=== PATIENT | male | born 1995 | race Caucasian/White ===

== ENCOUNTER 2018-02-21 19:45 | Inpatient (IN) | payer OTHER ==
[2018-02-21 21:19] VITALS: BMI 20.2
--- NOTE | 2018-02-21 22:18 | HP ---
CIWA Score Nausea/Vomitin-Mild Nausea/No Vomiting Muscle Tremors: 4-Moderate,w/Arms Extend Anxiety: 3 Agitation: 2 Paroxysmal Sweats: 1-Minimal Palms Moist Orientation: 1-Uncertain about Date Tacttile Disturbances: 0-None Auditory Disturbances: 0-None Visual Disturbances: 0-None Headache: 3-Moderate CIWA-Ar Total Score: 15 - Admission Criteria OASAS Guidelines: Admission for Medically Managed Detox: Requires at least one of the followin. CIWA greater than 12 2. Seizures within the past 24 hours 3. Delirium tremens within the past 24 hours 4. Hallucinations within the past 24 hours 5. Acute intervention needed for co occurring medical disorder 6. Acute intervention needed for co occurring psychiatric disorder 7. Severe withdrawal that cannot be handled at a lower level of care (continued vomiting, continued diarrhea, abnormal vital signs) requiring intravenous medication and/or fluids 8. Admission ROS [facility] Chief Complaint: Benodiazepine withdrawal symptoms Allergies/Adverse Reactions: Allergies Allergy/AdvReac Type Severity Reaction Status Date / Time shellfish derived Allergy Verified 02/21/18 21:19 History of Present Illness: 22 years old male with 5 years of benzodiazepine dependence is seeking admission to detox. Patient reports that this is his first admission to [facility] and this is his first detox. He has medical history of asthma, depression and anxiety. He denies suicide attempt and suicidal ideation at this time. He is on methadone 155mg at [facility] clinic. LDM is today, 02/21/2018. Exam Limitations: No Limitations - Ebola screening Have you traveled outside of the country in the last 21 days: No (N) Have you had contact with anyone from an Ebola affected area: No Have you been sick,other than usual withdrawal symptoms: No Do you have a fever: No - Review of Systems Constitutional: Chills, Malaise, Night Sweats, Changes in sleep EENT: reports: Sinus Pressure Respiratory: reports: No Symptoms reported Cardiac: reports: No Symptoms Reported GI: reports: Poor Appetite, Poor Fluid Intake, Abdominal cramping : reports: No Symptoms Reported Musculoskeletal: reports: Back Pain, Muscle Weakness Integumentary: reports: Dryness Neuro: reports: Headache, Tingling, Tremors Endocrine: reports: No Symptoms Reported Hematology: reports: No Symptoms Reported Psychiatric: reports: Anxious, Depressed Other Systems: Reviewed and Negative Patient History - Patient Medical History Hx Anemia: No Hx Asthma: Yes (Not on medication) Hx Chronic Obstructive Pulmonary Disease (COPD): No Hx Cancer: No Hx Cardiac Disorders: No Hx Congestive Heart Failure: No Hx Hypertension: No Hx Hypercholesterolemia: No Hx Pacemaker: No HX Cerebrovascular Accident: No Hx Seizures: No Hx Dementia: No Hx Diabetes: No Hx Gastrointestinal Disorders: No Hx Liver Disease: No Hx Genitourinary Disorders: No Hx Sexually Transmitted Disorders: No Hx Renal Disease (ESRD): No Hx Thyroid Disease: No Hx Human Immunodeficiency Virus (HIV): No (Negative 2018) Hx Hepatitis C: No Hx Depression: Yes (Not on medication) Hx Suicide Attempt: No (Denies suicide attempt or suicidal ideation at this tme ) Hx Bipolar Disorder: No Hx Schizophrenia: No - Patient Surgical History Past Surgical History: No - PPD History Previous Implant?: Yes Documented Results: Negative w/o proof Implanted On Prior [facility] Admission?: No PPD to be Administered?: Yes - Reproductive History Patient is a Female of Child Bearing Age (11 -55 yrs old): No (MALE) - Smoking Cessation Smoking history: Current every day smoker Have you smoked in the past 12 months: Yes Aproximately how many cigarettes per day: 4 Hx Chewing Tobacco Use: No Initiated information on smoking cessation: Yes 'Breaking Loose' booklet given: 02/21/18 - Substance & Tx. History Hx Alcohol Use: No Hx Substance Use: Yes Substance Use Type: Tranquilizers Hx Substance Use Treatment: No - Substances Abused Alprazolam (Xanax) Route: Oral Frequency: Daily Amount used: 2/2MG Age of first use: 21 Date of Last Use: 02/21/18 Benzodiazepine (Klonopin) Route: Oral Frequency: Daily Amount used: 2/2MG Age of first use: 21 Date of Last Use: 02/21/18 Family Disease History - Family Disease History Family History: Denies Admission Physical Exam BHS - Vital Signs Vital Signs: Vital Signs - 24 hr 02/21/18 21:06 Temperature 96.2 F L Pulse Rate 68 Respiratory 18 Rate Blood Pressure 105/54 L - Physical General Appearance: Yes: Moderate Distress HEENTM: Yes: EOMI, Normal ENT Inspection, Normocephalic, Normal Voice, ISIS Respiratory: Yes: Lungs Clear, Normal Breath Sounds, No Respiratory Distress Neck: Yes: Supple Breast: Yes: Breast Exam Deferred Cardiology: Yes: Regular Rhythm, Regular Rate Abdominal: Yes: Normal Bowel Sounds, Soft Genitourinary: Yes: Within Normal Limits Back: Yes: Normal Inspection Musculoskeletal: Yes: Back pain, Muscle Pain, Muscle weakness Extremities: Yes: Tremors Neurological: Yes: general magistrate II-XII NML intact, Alert Integumentary: Yes: Warm Lymphatic: Yes: Within Normal Limits - Diagnostic (1) Asthma Current Visit: Yes Status: Chronic Qualifiers: Asthma severity: mild Asthma persistence: intermittent (2) Depression Current Visit: Yes Status: Chronic Qualifiers: Depression Type: unspecified Qualified Code(s): F32.9 - Major depressive disorder, single episode, unspecified (3) Anxiety Current Visit: Yes Status: Chronic (4) Sedative, hypnotic or anxiolytic dependence with withdrawal, uncomplicated Current Visit: Yes Status: Chronic (5) Methadone maintenance therapy patient Current Visit: Yes Status: Chronic Cleared for Admission S - Detox or Rehab [facility] Level of Care: Medically Managed Detox Regimen/Protocol: Valium S Breath Alcohol Content Breath Alcohol Content: 0 Urine Drug Screen - Results Drug Screen Negative: No Urine Drug Screen Results: THC-Marijuana, BAR-Barbiturates, BZO-Benzodiazepines , MTD-Methadone
[2018-02-21] MEDS ORDERED: LOPERAMIDE HCL 2 MG CAPSULE PO PRN (22:45)
[2018-02-21] MEDS ORDERED: MAG HYDROX/AL HYDROX/SIMETH 30 ML UNIT-DOSE CUP PO PRN (22:45)
[2018-02-21] MEDS ORDERED: IBUPROFEN 400 MG TABLET (FP) PO PRN (22:45)
[2018-02-21] MEDS ORDERED: MAGNESIUM CITRATE 300 ML BOTTLE PO PRN (22:45)
[2018-02-21] MEDS ORDERED: NICOTINE POLACRILEX 2 MG GUM BC PRN (22:45)
[2018-02-21] MEDS ORDERED: guaiFENesin/D-METHORPHAN HB 10 ML UNIT-DOSE CUPS PO PRN (22:45)
[2018-02-21] MEDS ORDERED: diazePAM 5 MG TABLET PO ONE (22:45)
[2018-02-21] MEDS ORDERED: P-EPHED 60MG/TRIPROLIDI 2.5MG TABLET PO PRN (22:45)
[2018-02-21] MEDS ORDERED: ACETAMINOPHEN 325 MG TABLET (FP) PO PRN (22:45)
[2018-02-21] MEDS ORDERED: MENTHOL/PHENOL 1 EACH UD MM PRN (22:45)
[2018-02-21] MEDS: MELATONIN 5 MG TABLETS PO PRN (23:31)
[2018-02-21] MEDS: diazePAM 5 MG TABLET PO SCH (23:35)
[2018-02-22] MEDS: diazePAM 5 MG TABLET PO SCH ×3 (05:29→22:32)
[2018-02-22] MEDS ORDERED: METHADONE HCL 10 MG TABLET PO SCH (07:30)
[2018-02-22] MEDS ORDERED: METHADONE HCL 10 MG TABLET ONE (09:25)
[2018-02-22] MEDS ORDERED: METHADONE HCL 5 MG TABLET ONE (09:25)
[2018-02-22] MEDS ORDERED: METHADONE HCL 40 MG DISPERSABLE TABLET ONE (09:25)
[2018-02-22 10:05] LABS: HEMATOCRIT 38.2 % (35.4-49); HEMOGLOBIN 13.1 GM/dL (11.7-16.9); MCH 28.4 pg (25.7-33.7); MCHC 34.5 g/dl (32.0-35.9); MEAN CELL VOLUME 82.4 fl (80-96); MEAN PLT VOLUME 9.7 fl (7.5-11.1); PLATELET COUNT 156 K/MM3 (134-434); RBC 4.63 M/mm3 (4.00-5.60); RDW 14.3 % (11.9-15.9); WHITE BLOOD COUNT 7.1 K/mm3 (4.0-10.0)
[2018-02-22] MEDS: METHADONE 120 MG, METHADONE 30 MG, METHADONE 5 MG PO SCH (10:06)
[2018-02-22] MEDS: NICOTINE 14 MG/24 HOURS TOPICAL PATCH TD SCH (10:06)
[2018-02-22] MEDS: PRENATAL VITAMINS W/ FOLIC ACID TABLET (FP) PO SCH (10:06)
[2018-02-22] MEDS: MAGNESIUM HYDROX 2400MG/30ML ORAL SUSPENSION 30 ML CUP PO PRN (10:07)
[2018-02-22] MEDS: diazePAM 5 MG TABLET PO PRN ×2 (10:09→17:29)
[2018-02-22 10:25] LABS: ALK PHOS 73 U/L (45-117); ANION GAP 8 MMOL/L (8-16); BILIRUBIN,TOTAL 0.3 mg/dL (0.2-1); BLOOD UREA NITROGEN 13 mg/dL (7-18); CALCIUM 8.7 mg/dL (8.5-10.1); CHLORIDE 106 mmol/L (98-107); CO2 29 mmol/L (21-32); GLUCOSE,RANDOM 77 mg/dL (74-106); POTASSIUM 4.3 mmol/L (3.5-5.1); SGOT/AST 26 U/L (15-37); SGPT/ALT 29 U/L (13-61); SODIUM 142 mmol/L (136-145); TOT PROT 7.1 g/dl (6.4-8.2)
--- NOTE | 2018-02-22 12:39 | PN ---
S CIWA - CIWA Score Nausea/Vomitin-No Nausea/No Vomiting Muscle Tremors: None Anxiety: 4-Mod. Anxious/Guarded Agitation: 4-Moderately Restless Paroxysmal Sweats: 2 Orientation: 0-Oriented Tacttile Disturbances: 0-None Auditory Disturbances: 0-None Visual Disturbances: 0-None Headache: 2-Mild CIWA-Ar Total Score: 12 BHS Progress Note (SOAP) Subjective: PATIENT ANXIETY, RESTLESSNESS, HEADACHE AND CONSTIPATION. Objective: 02/22/18 12:37 Vital Signs Temperature 97.1 F L 02/22/18 06:15 Pulse Rate 55 L 02/22/18 06:15 Respiratory Rate 16 02/22/18 06:15 Blood Pressure 102/60 02/22/18 06:15 O2 Sat by Pulse Oximetry (%) Laboratory Tests 02/22/18 02/22/18 02/22/18 07:00 07:00 07:00 WBC 7.1 RBC 4.63 Hgb 13.1 Hct 38.2 MCV 82.4 MCH 28.4 MCHC 34.5 RDW 14.3 Plt Count 156 MPV 9.7 Sodium 142 Potassium 4.3 Chloride 106 Carbon Dioxide 29 Anion Gap 8 BUN 13 Creatinine 1.0 Creat Clearance w eGFR > 60 Random Glucose 77 Calcium 8.7 Total Bilirubin 0.3 AST 26 ALT 29 Alkaline Phosphatase 73 Total Protein 7.1 Albumin 4.0 RPR Titer Nonreactive PE; SKIN WARM AND DRY ALERT AND ORIENTED X 3 EXT + FULL ROM, NO EDEMA ANXIOUS AND RESTLESS AMB AD JOÃO Assessment: 02/22/18 12:38 WITHDRAWAL SX CONSTIPATION Plan: CONTINUE DETOX ENCOURAGE ORAL FLUIDS CONTINUE MOM PRN MONITOR CLINICALLY
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
[2018-02-22] MEDS: MELATONIN 5 MG TABLETS PO PRN (22:32)
[2018-02-22] MEDS: THIAMINE HCL 100 MG TABLET (FP) PO SCH (22:32)
[2018-02-23] MEDS ORDERED: METHADONE HCL 10 MG TABLET ONE (04:12)
[2018-02-23] MEDS ORDERED: METHADONE HCL 40 MG DISPERSABLE TABLET ONE (04:12)
[2018-02-23] MEDS ORDERED: METHADONE HCL 5 MG TABLET ONE (04:13)
[2018-02-23] MEDS: diazePAM 5 MG TABLET PO PRN ×2 (05:41→17:54)
[2018-02-23] MEDS: METHADONE 120 MG, METHADONE 30 MG, METHADONE 5 MG PO SCH (05:41)
[2018-02-23] MEDS: PRENATAL VITAMINS W/ FOLIC ACID TABLET (FP) PO SCH (09:44)
[2018-02-23] MEDS: NICOTINE 14 MG/24 HOURS TOPICAL PATCH TD SCH (09:44)
[2018-02-23] MEDS: diazePAM 5 MG TABLET PO SCH ×2 (09:44→22:07)
--- NOTE | 2018-02-23 10:53 | PN ---
S CIWA - CIWA Score Nausea/Vomitin-Mild Nausea/No Vomiting Muscle Tremors: 2 Anxiety: 4-Mod. Anxious/Guarded Agitation: 5 Paroxysmal Sweats: 1-Minimal Palms Moist Orientation: 0-Oriented Tacttile Disturbances: 0-None Auditory Disturbances: 0-None Visual Disturbances: 0-None Headache: 0-None Present CIWA-Ar Total Score: 13 BHS Progress Note (SOAP) Subjective: Constipation Anxious Feeling depressed Objective: 02/23/18 10:52 A & O x 3 Lips dry Anxious Very restless Vital Signs Temperature 97.0 F L 02/23/18 09:42 Pulse Rate 56 L 02/23/18 09:42 Respiratory Rate 16 02/23/18 09:42 Blood Pressure 102/61 02/23/18 09:42 O2 Sat by Pulse Oximetry (%) Assessment: 02/23/18 10:53 Withdrawal sx Anxiety Denies SI/HI, just feeling sad Plan: Continue detox Encouraged to increase hydration For psych consult Continue Valium PRN for Anxiety/restlessness Monitor constipation in view of Citroma given p.M yesterday Continue clinical monitoring
[2018-02-23 12:47] LABS: URINE APPEARANCE SLCLOUDY; URINE BILIRUBIN NEGATIVE (<2.0 mg/dL); URINE GLUCOSE (UA) NEGATIVE (NEGATIVE); URINE KETONE TRACE (NEGATIVE); URINE LEUK ESTERASE TRACE (NEGATIVE); URINE NITRITE NEGATIVE (NEGATIVE); URINE PROTEIN 1+ (NEGATIVE)
[2018-02-23 13:13] LABS: URINE COLOR DK YELLOW
[2018-02-23 14:04] LABS: URINE HYALINE CAST 3 /lpf; URINE MUCUS MANY
[2018-02-23] MEDS: MAGNESIUM HYDROX 2400MG/30ML ORAL SUSPENSION 30 ML CUP PO PRN (17:54)
[2018-02-23] MEDS: MELATONIN 5 MG TABLETS PO PRN (22:07)
[2018-02-23] MEDS: THIAMINE HCL 100 MG TABLET (FP) PO SCH (22:07)
[2018-02-24] MEDS ORDERED: METHADONE HCL 10 MG TABLET ONE (03:07)
[2018-02-24] MEDS ORDERED: METHADONE HCL 40 MG DISPERSABLE TABLET ONE (03:07)
[2018-02-24] MEDS ORDERED: METHADONE HCL 5 MG TABLET ONE (03:08)
[2018-02-24] MEDS: METHADONE 120 MG, METHADONE 30 MG, METHADONE 5 MG PO SCH (06:04)
[2018-02-24] MEDS: diazePAM 5 MG TABLET PO PRN ×3 (06:05→17:51)
[2018-02-24] MEDS: diazePAM 5 MG TABLET PO SCH ×2 (10:15→22:17)
[2018-02-24] MEDS: PRENATAL VITAMINS W/ FOLIC ACID TABLET (FP) PO SCH (10:15)
[2018-02-24] MEDS: NICOTINE 14 MG/24 HOURS TOPICAL PATCH TD SCH (10:15)
--- NOTE | 2018-02-24 16:05 | PN ---
BHS Progress Note (SOAP) Subjective: Sweating, anxious, restless Objective: 02/24/18 16:02 Last Vital Signs Temp Pulse Resp BP Pulse Ox 97.4 F L 63 18 115/70 02/24/18 13:45 02/24/18 13:45 02/24/18 13:45 02/24/18 13:45 Laboratory Tests 02/22/18 02/22/18 02/22/18 07:00 07:00 07:00 WBC 7.1 RBC 4.63 Hgb 13.1 Hct 38.2 MCV 82.4 MCH 28.4 MCHC 34.5 RDW 14.3 Plt Count 156 MPV 9.7 Sodium 142 Potassium 4.3 Chloride 106 Carbon Dioxide 29 Anion Gap 8 BUN 13 Creatinine 1.0 Creat Clearance w eGFR > 60 Random Glucose 77 Calcium 8.7 Total Bilirubin 0.3 AST 26 ALT 29 Alkaline Phosphatase 73 Total Protein 7.1 Albumin 4.0 Urine Color Urine Appearance Urine pH Ur Specific [place] Urine Protein Urine Glucose (UA) Urine Ketones Urine Blood Urine Nitrite Urine Bilirubin Urine Urobilinogen Ur Leukocyte Esterase Urine WBC (Auto) Urine RBC (Auto) Hyaline Casts Urine Mucus RPR Titer Nonreactive 02/23/18 09:38 WBC RBC Hgb Hct MCV MCH MCHC RDW Plt Count MPV Sodium Potassium Chloride Carbon Dioxide Anion Gap BUN Creatinine Creat Clearance w eGFR Random Glucose Calcium Total Bilirubin AST ALT Alkaline Phosphatase Total Protein Albumin Urine Color Dk yellow Urine Appearance Slcloudy Urine pH 5.0 Ur Specific [place] 1.029 Urine Protein 1+ H Urine Glucose (UA) Negative Urine Ketones Trace H Urine Blood Negative Urine Nitrite Negative Urine Bilirubin Negative Urine Urobilinogen 2.0 Ur Leukocyte Esterase Trace Urine WBC (Auto) 1 Urine RBC (Auto) None Hyaline Casts 3 Urine Mucus Many RPR Titer Labs reviewed: abnormal UA Assessment: 02/24/18 16:03 Withdrawal symptoms Noted with abnormal UA Plan: Continue detox Abnormal UA: encouraged PO water intake, repeat UA
[2018-02-24 21:10] LABS: URINE APPEARANCE CLEAR; URINE BILIRUBIN NEGATIVE (<2.0 mg/dL); URINE COLOR STRAW; URINE GLUCOSE (UA) NEGATIVE (NEGATIVE); URINE KETONE NEGATIVE (NEGATIVE); URINE LEUK ESTERASE TRACE (NEGATIVE); URINE NITRITE NEGATIVE (NEGATIVE); URINE PROTEIN NEGATIVE (NEGATIVE); URINE UROBILINOGEN NEGATIVE mg/dL (0.2-1.0)
[2018-02-24] MEDS: THIAMINE HCL 100 MG TABLET (FP) PO SCH (22:17)
[2018-02-24] MEDS: MELATONIN 5 MG TABLETS PO PRN (22:18)
[2018-02-25] MEDS ORDERED: METHADONE HCL 10 MG TABLET ONE (03:33)
[2018-02-25] MEDS ORDERED: METHADONE HCL 5 MG TABLET ONE (03:34)
[2018-02-25] MEDS ORDERED: METHADONE HCL 40 MG DISPERSABLE TABLET ONE (03:34)
[2018-02-25] MEDS: METHADONE 120 MG, METHADONE 30 MG, METHADONE 5 MG PO SCH (06:04)
[2018-02-25 09:05] VITALS: BP 133/75; PULSE 70; TEMP 98.6
--- NOTE | 2018-02-25 09:08 | DS ---
[facility] Detox Discharge Summary Admission Date: 02/21/18 Discharge Date: 02/25/18 - History Present History: Sedative Dependence Additional Comments: 22 years old male admitted on 02/21/18 for benzo withdrawal sx completed benzo detox regimen tolerated well denies benzo withdrawal sx alert oriented x 3 no acute distress aftercare methadone maintenance program Dr. Rivera - Physical Exam Results Vital Signs: Vital Signs Temperature 98.6 F 02/25/18 09:05 Pulse Rate 70 02/25/18 09:05 Respiratory Rate 18 02/25/18 09:05 Blood Pressure 133/75 02/25/18 09:05 O2 Sat by Pulse Oximetry (%) Pertinent Admission Physical Exam Findings: benzo withdrawal sx Vital Signs Temperature 98.6 F 02/25/18 09:05 Pulse Rate 70 02/25/18 09:05 Respiratory Rate 18 02/25/18 09:05 Blood Pressure 133/75 02/25/18 09:05 O2 Sat by Pulse Oximetry (%) Laboratory Last Values WBC 7.1 K/mm3 (4.0-10.0) 02/22/18 07:00 RBC 4.63 M/mm3 (4.00-5.60) 02/22/18 07:00 Hgb 13.1 GM/dL (11.7-16.9) 02/22/18 07:00 Hct 38.2 % (35.4-49) 02/22/18 07:00 MCV 82.4 fl (80-96) 02/22/18 07:00 MCH 28.4 pg (25.7-33.7) 02/22/18 07:00 MCHC 34.5 g/dl (32.0-35.9) 02/22/18 07:00 RDW 14.3 % (11.9-15.9) 02/22/18 07:00 Plt Count 156 K/MM3 (134-434) 02/22/18 07:00 MPV 9.7 fl (7.5-11.1) 02/22/18 07:00 Sodium 142 mmol/L (136-145) 02/22/18 07:00 Potassium 4.3 mmol/L (3.5-5.1) 02/22/18 07:00 Chloride 106 mmol/L (98-107) 02/22/18 07:00 Carbon Dioxide 29 mmol/L (21-32) 02/22/18 07:00 Anion Gap 8 MMOL/L (8-16) 02/22/18 07:00 BUN 13 mg/dL (7-18) 02/22/18 07:00 Creatinine 1.0 mg/dL (0.55-1.3) 02/22/18 07:00 Creat Clearance w eGFR > 60 (>60) 02/22/18 07:00 Random Glucose 77 mg/dL (74-106) 02/22/18 07:00 Calcium 8.7 mg/dL (8.5-10.1) 02/22/18 07:00 Total Bilirubin 0.3 mg/dL (0.2-1) 02/22/18 07:00 AST 26 U/L (15-37) 02/22/18 07:00 ALT 29 U/L (13-61) 02/22/18 07:00 Alkaline Phosphatase 73 U/L (45-117) 02/22/18 07:00 Total Protein 7.1 g/dl (6.4-8.2) 02/22/18 07:00 Albumin 4.0 g/dl (3.4-5.0) 02/22/18 07:00 Urine Color Straw 02/24/18 19:00 Urine Appearance Clear 02/24/18 19:00 Urine pH 7.0 (5.0-8.0) D 02/24/18 19:00 Ur Specific [place] 1.012 (1.010-1.035) 02/24/18 19:00 Urine Protein Negative (NEGATIVE) 02/24/18 19:00 Urine Glucose (UA) Negative (NEGATIVE) 02/24/18 19:00 Urine Ketones Negative (NEGATIVE) 02/24/18 19:00 Urine Blood Negative (NEGATIVE) 02/24/18 19:00 Urine Nitrite Negative (NEGATIVE) 02/24/18 19:00 Urine Bilirubin Negative (<2.0 mg/dL) 02/24/18 19:00 Urine Urobilinogen Negative mg/dL (0.2-1.0) 02/24/18 19:00 Ur Leukocyte Esterase Trace (NEGATIVE) 02/24/18 19:00 Urine WBC (Auto) 1 /hpf (3-5) 02/24/18 19:00 Urine RBC (Auto) None /hpf (0-3) 02/24/18 19:00 Hyaline Casts 3 /lpf 02/23/18 09:38 Urine Mucus Many 02/23/18 09:38 RPR Titer Nonreactive (NONREACTIVE) 02/22/18 07:00 lab noted - Treatment Hospital Course: Detox Protocol Followed, Detoxed Safely, Responded well, Discharged Condition Good, Rehab Referral Accepted Patient has Accepted a Rehab Referral to: [facility] - Medication Discharge Medications: Ambulatory Orders NK [No Known Home Medication] 02/21/18 - Diagnosis (1) Sedative, hypnotic or anxiolytic dependence with withdrawal, uncomplicated Status: Acute (2) Substance induced mood disorder Status: Suspected (3) Asthma Status: Chronic Qualifiers: Asthma severity: mild Asthma persistence: intermittent Asthma complication type: with status asthmaticus Qualified Code(s): J45.22 - Mild intermittent asthma with status asthmaticus (4) Methadone maintenance therapy patient Status: Chronic (5) Nicotine dependence Status: Chronic Qualifiers: Nicotine product type: cigarettes Substance use status: in withdrawal Qualified Code(s): F17.213 - Nicotine dependence, cigarettes, with withdrawal - AMA Did Patient Leave Against Medical Advice: No
[2018-02-25] MEDS: PRENATAL VITAMINS W/ FOLIC ACID TABLET (FP) PO SCH (09:29)
[2018-02-25] MEDS ORDERED: diazePAM 5 MG TABLET PO SCH (10:00)
== END 2018-02-25 09:59 | disposition home or self-care (01) | DRG 773 ==
LOC: YASAS 19:45 → Y3N 21:40
PROVIDERS: ADMIT Neuromusculoskeletal Medicine & OMM; ATTEND Neuromusculoskeletal Medicine & OMM
PROC: HZ2ZZZZ Detoxification Services for Substance Abuse Treatment (ICD-10-PCS; principal; 2018-02-21)
DX: F13.230 Sedative, hypnotic or anxiolytic dependence with withdrawal, uncomplicated (principal); F11.20 Opioid dependence, uncomplicated; F17.213 Nicotine dependence, cigarettes, with withdrawal; F19.24 Other psychoactive substance dependence with psychoactive substance-induced mood disorder; F41.9 Anxiety disorder, unspecified; F32.9 Major depressive disorder, single episode, unspecified; J45.22 Mild intermittent asthma with status asthmaticus; R82.90 Unspecified abnormal findings in urine; K59.00 Constipation, unspecified; Z91.19 Patient's noncompliance with other medical treatment and regimen; Z91.013 Allergy to seafood
CPT/HCPCS: 36415; 80053; 81003; 81015; 85027; 86593

== ENCOUNTER 2018-12-16 16:22 | Inpatient (IN) | payer OTHER ==
--- NOTE | 2018-12-16 21:51 | HP ---
CIWA Score Nausea/Vomitin-No Nausea/No Vomiting Muscle Tremors: None Anxiety: 4-Mod. Anxious/Guarded Agitation: 4-Moderately Restless Paroxysmal Sweats: 3 Orientation: 1-Uncertain about Date Tacttile Disturbances: 0-None Auditory Disturbances: 1-Very Mild Visual Disturbances: 1-Very Mild Sensitivity Headache: 2-Mild CIWA-Ar Total Score: 16 - Admission Criteria OAS Guidelines: Admission for Medically Managed Detox: Requires at least one of the followin. CIWA greater than 12 2. Seizures within the past 24 hours 3. Delirium tremens within the past 24 hours 4. Hallucinations within the past 24 hours 5. Acute intervention needed for co occurring medical disorder 6. Acute intervention needed for co occurring psychiatric disorder 7. Severe withdrawal that cannot be handled at a lower level of care (continued vomiting, continued diarrhea, abnormal vital signs) requiring intravenous medication and/or fluids 8. Patient presents the following: CIWA greater than 12, Acute intervention needed for co-occurring med or psych disorder Admission Criteria Met: Admission criteria met Admission ROS S - [facility] Chief Complaint: C/O WITHDRAWAL SX'S Allergies/Adverse Reactions: Allergies Allergy/AdvReac Type Severity Reaction Status Date / Time shellfish derived Allergy Verified 12/16/18 19:21 History of Present Illness: 23 Y.O. MALE WITH BENZO DEPENDENCE ON MMTP HERE FOR DETOX. CLIENT IS SELF REFERRED. LAST HERE 01/2018. PRESENTS WITH C/O WORSENING WITHDRAWAL SX'S, REPORTS KLONOPINS AND/OR XANAX ON A DAILY BASIS. LAST USED EARLIER TODAY. + CIWA , DENIES HX/O SEIZURES, BLACKOUTS. CLIENT REPORTS A CLEAN TIME OF 6 MONTHS RELAPSING 3 MONTHS AGO. LIVES WITH PARENTS, UNEMPLOYED- FAMILY SUPPORT, DENIES LEGALS. HE ALSO SUFFERS FROM DEPRESSION ON MED MGMT REPORTS COMPLIANCE WITH MED MGMT FOLLOWS PSYCH IN THE [facility] BY [facility]. DENIES SI/HI. HE IS [facility] OM MMTP AT [facility] WITH A REPORTED DOSE OF 155MG. LDM TODAY PENDING VERIFICATION Exam Limitations: No Limitations - Ebola screening Have you traveled outside of the country in the last 21 days: No Have you had contact with anyone from an Ebola affected area: No Have you been sick,other than usual withdrawal symptoms: No Do you have a fever: No - Review of Systems Constitutional: Loss of Appetite, Malaise (LOWER BACK), Night Sweats, Changes in sleep, Unintentional Wgt. Loss EENT: reports: Other (GLASSES) Respiratory: reports: No Symptoms reported Cardiac: reports: No Symptoms Reported GI: reports: Poor Appetite, Poor Fluid Intake, Abdominal cramping : reports: No Symptoms Reported Musculoskeletal: reports: Back Pain (CHRONIC) Integumentary: reports: Flushing, Sweating Neuro: reports: No Symptoms reported Endocrine: reports: No Symptoms Reported Hematology: reports: No Symptoms Reported Psychiatric: reports: Agitated (IRRITABLE), Anxious, Depressed Other Systems: Reviewed and Negative Patient History - Patient Medical History Hx Anemia: No Hx Asthma: Yes (Not on medication) Hx Chronic Obstructive Pulmonary Disease (COPD): No Hx Cancer: No Hx Cardiac Disorders: No Hx Congestive Heart Failure: No Hx Hypertension: No Hx Hypercholesterolemia: No Hx Pacemaker: No HX Cerebrovascular Accident: No Hx Seizures: No Hx Dementia: No Hx Diabetes: No Hx Gastrointestinal Disorders: No Hx Liver Disease: No Hx Genitourinary Disorders: No Hx Sexually Transmitted Disorders: No Hx Renal Disease (ESRD): No Hx Thyroid Disease: No Hx Human Immunodeficiency Virus (HIV): No (Negative 2017) Hx Hepatitis C: No Hx Depression: Yes (Not on medication) Hx Suicide Attempt: No Hx Bipolar Disorder: No Hx Schizophrenia: No Other Medical History: DENIES - Patient Surgical History Past Surgical History: No - PPD History Previous Implant?: Yes Documented Results: Negative w/proof Implanted On Prior [facility] Admission?: Yes Date: 02/23/18 PPD to be Administered?: No - Smoking Cessation Smoking history: Current every day smoker Have you smoked in the past 12 months: Yes Aproximately how many cigarettes per day: 4 Cigars Per Day: 0 Hx Chewing Tobacco Use: No Initiated information on smoking cessation: Yes 'Breaking Loose' booklet given: 12/16/18 - Substance & Tx. History Hx Alcohol Use: No Hx Substance Use: Yes Substance Use Type: Cocaine, Prescribed (METHADONE), Tranquilizers (KLONOPINS AND XANAX) Hx Substance Use Treatment: Yes ([facility]) - Substances abused Benzodiazepine (Klonopin) Substance route: Oral Frequency: Daily Amount used: 3-5mg/day Age of first use: 17 Date of last use: 12/16/18 Alprazolam (Xanax) Substance route: Oral Frequency: 3-6 times per week Amount used: 4mg Age of first use: 17 Date of last use: 12/16/18 Cocaine Substance route: Injection Frequency: Daily Amount used: $60/day Age of first use: 18 Date of last use: 12/16/18 Family Disease History - Family Disease History Family Disease History: Other: Father (RECOVERING HEROIN ADDICT), Mother ( DEPRESSION, ANXIETY, RECOVERING ADDICTS COCAINE) Admission Physical Exam [facility] - Vital Signs Vital Signs: Vital Signs - 24 hr 12/16/18 19:18 Temperature 98.0 F Pulse Rate 86 Respiratory 16 Rate Blood Pressure 112/82 - Physical General Appearance: Yes: Moderate Distress, Tremorous (FELT), Irritable, Anxious HEENTM: Yes: EOMI, Normocephalic, Normal Voice, ISIS, Pharynx Normal Respiratory: Yes: Chest Non-Tender, Lungs Clear, Normal Breath Sounds, No Respiratory Distress, No Accessory Muscle Use Neck: Yes: No masses,lesions,Nodules, Supple, Trachea in good position Breast: Yes: Breast Exam Deferred Cardiology: Yes: Regular Rhythm, Regular Rate, S1, S2 Abdominal: Yes: Normal Bowel Sounds, Non Tender, Soft Genitourinary: Yes: Within Normal Limits Back: Yes: Normal Inspection Musculoskeletal: Yes: full range of Motion, Gait Steady Extremities: Yes: Normal Capillary Refill, Normal Range of Motion, Non-Tender, Tremors (FELT) Neurological: Yes: Alert, Motor Strength 5/5 Integumentary: Yes: Cold, Clammy Lymphatic: Yes: Within Normal Limits - Diagnostic (1) Opioid dependence on agonist therapy Current Visit: Yes Status: Chronic (2) Sedative, hypnotic or anxiolytic dependence with withdrawal, uncomplicated Current Visit: Yes Status: Acute (3) Asthma Current Visit: Yes Status: Chronic Qualifiers: Asthma severity: mild Asthma persistence: intermittent Asthma complication type: with status asthmaticus Qualified Code(s): J45.22 - Mild intermittent asthma with status asthmaticus (4) Depression Current Visit: Yes Status: Chronic Qualifiers: Depression Type: unspecified Qualified Code(s): F32.9 - Major depressive disorder, single episode, unspecified (5) Nicotine dependence Current Visit: Yes Status: Chronic Qualifiers: Nicotine product type: cigarettes Substance use status: in withdrawal Qualified Code(s): F17.213 - Nicotine dependence, cigarettes, with withdrawal (6) Substance induced mood disorder Current Visit: Yes Status: Suspected Cleared for Admission S - Detox or Rehab [facility] Level of Care: Medically Managed Detox Regimen/Protocol: Valium Claeared for Rehab Admission: No Breathalyzer - Breathalyzer Breathalyzer: 0 Urine Drug Screen - Test Device Lot number: [id number] Expiration date: 08/30/20 - Control Is test valid?: Yes - Results Drug screen NEGATIVE: No Urine drug screen results: THC-Marijuana, LEONEL-Cocaine, MTD-Methadone, BZO- Benzodiazepines Inpatient Rehab Admission - Rehab Decision to Admit Inpatient rehab admission?: No
[2018-12-16] MEDS ORDERED: BISMUTH SUBSALICYLATE 524 MG/30 ML UD PO PRN (21:57)
[2018-12-16] MEDS ORDERED: MAG HYDROX/AL HYDROX/SIMETH 30 ML UNIT-DOSE CUP PO PRN (21:57)
[2018-12-16] MEDS ORDERED: MAGNESIUM HYDROX 2400MG/30ML ORAL SUSPENSION 30 ML CUP PO PRN (21:57)
[2018-12-16] MEDS ORDERED: MENTHOL/PHENOL 1 EACH UD MM PRN (21:57)
[2018-12-16] MEDS ORDERED: ACETAMINOPHEN 325 MG TABLET (FP) PO PRN ×2 (21:57)
[2018-12-16] MEDS ORDERED: MAGNESIUM CITRATE 300 ML BOTTLE PO PRN (21:57)
[2018-12-16] MEDS ORDERED: ONDANSETRON *ODT* 4 MG TABLET SL PRN (21:57)
[2018-12-16] MEDS ORDERED: DICYCLOMINE HCL 10 MG CAPSULE PO PRN (21:57)
[2018-12-16] MEDS ORDERED: IBUPROFEN 400 MG TABLET (FP) PO PRN (21:57)
[2018-12-16] MEDS ORDERED: NICOTINE POLACRILEX 2 MG GUM BUC PRN (21:57)
[2018-12-16] MEDS: THIAMINE HCL 100 MG TABLET (FP) PO SCH (23:35)
[2018-12-16] MEDS: MELATONIN 5 MG TABLETS PO PRN (23:35)
[2018-12-16] MEDS: diazePAM 5 MG TABLET PO SCH (23:35)
[2018-12-17] MEDS: diazePAM 5 MG TABLET PO SCH ×3 (06:31→21:12)
[2018-12-17] MEDS ORDERED: METHADONE 120 MG, METHADONE 30 MG, METHADONE 5 MG PO ONE (09:00)
[2018-12-17] MEDS ORDERED: METHADONE HCL 10 MG TABLET ONE (09:55)
[2018-12-17] MEDS ORDERED: METHADONE HCL 5 MG TABLET ONE (09:56)
[2018-12-17] MEDS ORDERED: METHADONE HCL 40 MG DISPERSABLE TABLET ONE (09:56)
[2018-12-17] MEDS ORDERED: METHADONE HCL 10 MG TABLET PO ONE (10:00)
--- NOTE | 2018-12-17 10:03 | PN ---
S CIWA - CIWA Score Nausea/Vomitin-Mild Nausea/No Vomiting Muscle Tremors: 3 Anxiety: 4-Mod. Anxious/Guarded Agitation: 3 Paroxysmal Sweats: 2 Orientation: 0-Oriented Tacttile Disturbances: 1-Very Mild Itch/Numbness Auditory Disturbances: 0-None Visual Disturbances: 0-None Headache: 0-None Present CIWA-Ar Total Score: 14 [facility] Progress Note (SOAP) Subjective: 23 years old male admitted on 12/16/18 for benzo withdrawal sx management doing well with valium detox regimen patient received valium 5 mg po bid 30 days refilled on 11/21/18 patient hesitate to discuss aftercare with staff at this time Objective: 12/17/18 10:05 Vital Signs Temperature 97.3 F L 12/17/18 09:16 Pulse Rate 64 12/17/18 09:16 Respiratory Rate 18 12/17/18 09:16 Blood Pressure 104/61 12/17/18 09:16 O2 Sat by Pulse Oximetry (%) 12/17/18 10:05 lab pending Assessment: 12/17/18 10:05 benzo withdrawal sx Plan: continue valium detox regimen
[2018-12-17 10:08] LABS: HEMATOCRIT 36.7 % (35.4-49); HEMOGLOBIN 12.2 GM/dL (11.7-16.9); MCHC 33.3 g/dl (32.0-35.9); MEAN CELL VOLUME 83.9 fl (80-96); MEAN PLT VOLUME 8.7 fl (7.5-11.1); PLATELET COUNT 157 K/MM3 (134-434); RBC 4.37 M/mm3 (4.00-5.60); RDW 13.6 % (11.9-15.9); WHITE BLOOD COUNT 4.5 K/mm3 (4.0-10.0)
--- NOTE | 2018-12-17 10:09 | EKG ---
Test Reason : Blood Pressure : / mmHG Vent. Rate : 055 BPM Atrial Rate : 055 BPM P-R Int : 134 ms QRS Dur : 094 ms QT Int : 476 ms P-R-T Axes : 066 090 055 degrees QTc Int : 455 ms SINUS BRADYCARDIA RIGHTWARD AXIS BORDERLINE ECG NO PREVIOUS ECGS AVAILABLE Confirmed by MD Rachelle, Sridhar ([id number]) on 12/17/2018 10:09:17 AM Referred By: Confirmed By:Sridhar Bush MD
[2018-12-17 10:22] LABS: ALBUMIN 3.7 g/dl (3.4-5.0); BILIRUBIN,TOTAL 0.4 mg/dL (0.2-1); BLOOD UREA NITROGEN 14.1 mg/dL (7-18); CALCIUM 8.6 mg/dL (8.5-10.1); POTASSIUM 4.1 mmol/L (3.5-5.1); TOT PROT 6.4 g/dl (6.4-8.2)
[2018-12-17] MEDS: PRENATAL VITAMINS W/ FOLIC ACID TABLET (FP) PO SCH (10:28)
[2018-12-17] MEDS: NICOTINE 14 MG/24 HOURS TOPICAL PATCH TD SCH (10:28)
[2018-12-17] MEDS: hydrOXYzine PAMOATE 25 MG CAPSULE (FP) PO PRN (18:57)
[2018-12-17] MEDS: THIAMINE HCL 100 MG TABLET (FP) PO SCH (21:11)
[2018-12-17] MEDS: MELATONIN 5 MG TABLETS PO PRN (21:12)
[2018-12-18] MEDS ORDERED: METHADONE HCL 10 MG TABLET ONE (04:12)
[2018-12-18] MEDS ORDERED: METHADONE HCL 40 MG DISPERSABLE TABLET ONE (04:12)
[2018-12-18] MEDS ORDERED: METHADONE HCL 5 MG TABLET ONE (04:13)
[2018-12-18] MEDS ORDERED: METHADONE HCL 10 MG TABLET PO SCH (06:00)
[2018-12-18] MEDS: METHADONE 120 MG, METHADONE 30 MG, METHADONE 5 MG PO SCH (06:08)
[2018-12-18] MEDS: diazePAM 5 MG TABLET PO SCH ×2 (06:09→17:24)
[2018-12-18] MEDS: NICOTINE 14 MG/24 HOURS TOPICAL PATCH TD SCH (10:24)
[2018-12-18] MEDS: PRENATAL VITAMINS W/ FOLIC ACID TABLET (FP) PO SCH (10:24)
[2018-12-18] MEDS: diazePAM 5 MG TABLET PO PRN ×3 (10:24→20:44)
[2018-12-18 11:36] LABS: URINE APPEARANCE CLEAR; URINE BILIRUBIN NEGATIVE (NEGATIVE); URINE COLOR YELLOW; URINE GLUCOSE (UA) NEGATIVE (NEGATIVE); URINE KETONE NEGATIVE (NEGATIVE); URINE LEUK ESTERASE NEGATIVE (NEGATIVE); URINE NITRITE NEGATIVE (NEGATIVE); URINE PROTEIN NEGATIVE (NEGATIVE); URINE UROBILINOGEN 0.2 mg/dL (0.2-1.0)
--- NOTE | 2018-12-18 13:21 | PN ---
[facility] CIWA - CIWA Score Nausea/Vomitin-No Nausea/No Vomiting Muscle Tremors: 3 Anxiety: 3 Agitation: 2 Paroxysmal Sweats: 1-Minimal Palms Moist Orientation: 0-Oriented Tacttile Disturbances: 0-None Auditory Disturbances: 0-None Visual Disturbances: 0-None Headache: 0-None Present CIWA-Ar Total Score: 9 S Progress Note (SOAP) Subjective: doing well with valium detox regimen less anxious mild tremor discuss aftercare with staff prefers PAC program Objective: 12/18/18 13:21 Vital Signs Temperature 97.0 F L 12/18/18 13:09 Pulse Rate 59 L 12/18/18 13:09 Respiratory Rate 18 12/18/18 13:09 Blood Pressure 103/57 L 12/18/18 13:09 O2 Sat by Pulse Oximetry (%) Laboratory Last Values WBC 4.5 K/mm3 (4.0-10.0) 12/17/18 08:00 RBC 4.37 M/mm3 (4.00-5.60) 12/17/18 08:00 Hgb 12.2 GM/dL (11.7-16.9) 12/17/18 08:00 Hct 36.7 % (35.4-49) 12/17/18 08:00 MCV 83.9 fl (80-96) 12/17/18 08:00 MCH 28.0 pg (25.7-33.7) 12/17/18 08:00 MCHC 33.3 g/dl (32.0-35.9) 12/17/18 08:00 RDW 13.6 % (11.9-15.9) 12/17/18 08:00 Plt Count 157 K/MM3 (134-434) 12/17/18 08:00 MPV 8.7 fl (7.5-11.1) D 12/17/18 08:00 Sodium 141 mmol/L (136-145) 12/17/18 08:00 Potassium 4.1 mmol/L (3.5-5.1) 12/17/18 08:00 Chloride 104 mmol/L (98-107) 12/17/18 08:00 Carbon Dioxide 30 mmol/L (21-32) 12/17/18 08:00 Anion Gap 6 MMOL/L (8-16) L 12/17/18 08:00 BUN 14.1 mg/dL (7-18) 12/17/18 08:00 Creatinine 1.0 mg/dL (0.55-1.3) 12/17/18 08:00 Est GFR (CKD-EPI)AfAm 122.41 12/17/18 08:00 Est GFR (CKD-EPI)NonAf 105.62 12/17/18 08:00 Random Glucose 90 mg/dL (74-106) 12/17/18 08:00 Calcium 8.6 mg/dL (8.5-10.1) 12/17/18 08:00 Total Bilirubin 0.4 mg/dL (0.2-1) 12/17/18 08:00 AST 21 U/L (15-37) 12/17/18 08:00 ALT 20 U/L (13-61) 12/17/18 08:00 Alkaline Phosphatase 53 U/L (45-117) 12/17/18 08:00 Total Protein 6.4 g/dl (6.4-8.2) 12/17/18 08:00 Albumin 3.7 g/dl (3.4-5.0) 12/17/18 08:00 Urine Color Yellow 12/18/18 08:55 Urine Appearance Clear 12/18/18 08:55 Urine pH 7.0 (5.0-8.0) 12/18/18 08:55 Ur Specific [place] 1.014 (1.010-1.035) 12/18/18 08:55 Urine Protein Negative (NEGATIVE) 12/18/18 08:55 Urine Glucose (UA) Negative (NEGATIVE) 12/18/18 08:55 Urine Ketones Negative (NEGATIVE) 12/18/18 08:55 Urine Blood Negative (NEGATIVE) 12/18/18 08:55 Urine Nitrite Negative (NEGATIVE) 12/18/18 08:55 Urine Bilirubin Negative (NEGATIVE) 12/18/18 08:55 Urine Urobilinogen 0.2 mg/dL (0.2-1.0) 12/18/18 08:55 Ur Leukocyte Esterase Negative (NEGATIVE) 12/18/18 08:55 RPR Titer Nonreactive (NONREACTIVE) 12/17/18 08:00 HIV 1&2 Antibody Screen Negative 12/17/18 08:00 HIV P24 Antigen Negative 12/17/18 08:00 lab noted Assessment: 12/18/18 13:21 benzo withdrawal sx Plan: continue valium detox
[2018-12-18] MEDS ORDERED: LOPERAMIDE HCL 2 MG CAPSULE PO ONE (14:00)
[2018-12-18] MEDS: METHOCARBAMOL 500 MG TABLET PO PRN (20:52)
[2018-12-18] MEDS: MELATONIN 5 MG TABLETS PO PRN (22:24)
[2018-12-18] MEDS: THIAMINE HCL 100 MG TABLET (FP) PO SCH (22:24)
[2018-12-18] MEDS: hydrOXYzine PAMOATE 25 MG CAPSULE (FP) PO PRN (22:24)
[2018-12-19] MEDS: diazePAM 5 MG TABLET PO PRN (02:51)
[2018-12-19] MEDS ORDERED: METHADONE HCL 10 MG TABLET ONE (04:21)
[2018-12-19] MEDS ORDERED: METHADONE HCL 40 MG DISPERSABLE TABLET ONE (04:22)
[2018-12-19] MEDS ORDERED: METHADONE HCL 5 MG TABLET ONE (04:22)
[2018-12-19] MEDS: METHADONE 120 MG, METHADONE 30 MG, METHADONE 5 MG PO SCH (05:54)
[2018-12-19] MEDS: METHOCARBAMOL 500 MG TABLET PO PRN (05:55)
[2018-12-19] MEDS ORDERED: diazePAM 5 MG TABLET PO ONE (06:00)
[2018-12-19 09:24] VITALS: BP 106/70; PULSE 57; TEMP 96.8
[2018-12-19] MEDS: PRENATAL VITAMINS W/ FOLIC ACID TABLET (FP) PO SCH (10:04)
[2018-12-19] MEDS: hydrOXYzine PAMOATE 25 MG CAPSULE (FP) PO PRN (10:05)
--- NOTE | 2018-12-19 10:50 | DS ---
[facility] Detox Discharge Summary Admission Date: 12/16/18 Discharge Date: 12/19/18 - History Present History: Sedative Dependence Additional Comments: 23 years old male 2nd patient [facility] admitted on 12/16/18 for benzo withdrawal sx did well with valium detox regimen on methadone maintenance program 155 mg po daily patient reported that "no one drives him to methadone program every day" encourage the patient to go to rehab learning coping mechanism patient is concerned been waking up early for group therapy patient stated that he can go to his sister's house and go to methadone program patient is alert oriented x 3 speech clearly coherently goal directed cardiac S1S2 regular rhythm respiratory clear lung sound bilaterally on auscultation extremities full range of motion Pertinent Past History: discuss the risks of benzo mixed with methadone - Physical Exam Results Vital Signs: Vital Signs Temperature 96.8 F L 12/19/18 09:24 Pulse Rate 57 L 12/19/18 09:24 Respiratory Rate 18 12/19/18 09:24 Blood Pressure 106/70 12/19/18 09:24 O2 Sat by Pulse Oximetry (%) Pertinent Admission Physical Exam Findings: benzo withdrawal sx Vital Signs Temperature 96.8 F L 12/19/18 09:24 Pulse Rate 57 L 12/19/18 09:24 Respiratory Rate 18 12/19/18 09:24 Blood Pressure 106/70 12/19/18 09:24 O2 Sat by Pulse Oximetry (%) Laboratory Last Values WBC 4.5 K/mm3 (4.0-10.0) 12/17/18 08:00 RBC 4.37 M/mm3 (4.00-5.60) 12/17/18 08:00 Hgb 12.2 GM/dL (11.7-16.9) 12/17/18 08:00 Hct 36.7 % (35.4-49) 12/17/18 08:00 MCV 83.9 fl (80-96) 12/17/18 08:00 MCH 28.0 pg (25.7-33.7) 12/17/18 08:00 MCHC 33.3 g/dl (32.0-35.9) 12/17/18 08:00 RDW 13.6 % (11.9-15.9) 12/17/18 08:00 Plt Count 157 K/MM3 (134-434) 12/17/18 08:00 MPV 8.7 fl (7.5-11.1) D 12/17/18 08:00 Sodium 141 mmol/L (136-145) 12/17/18 08:00 Potassium 4.1 mmol/L (3.5-5.1) 12/17/18 08:00 Chloride 104 mmol/L (98-107) 12/17/18 08:00 Carbon Dioxide 30 mmol/L (21-32) 12/17/18 08:00 Anion Gap 6 MMOL/L (8-16) L 12/17/18 08:00 BUN 14.1 mg/dL (7-18) 12/17/18 08:00 Creatinine 1.0 mg/dL (0.55-1.3) 12/17/18 08:00 Est GFR (CKD-EPI)AfAm 122.41 12/17/18 08:00 Est GFR (CKD-EPI)NonAf 105.62 12/17/18 08:00 Random Glucose 90 mg/dL (74-106) 12/17/18 08:00 Calcium 8.6 mg/dL (8.5-10.1) 12/17/18 08:00 Total Bilirubin 0.4 mg/dL (0.2-1) 12/17/18 08:00 AST 21 U/L (15-37) 12/17/18 08:00 ALT 20 U/L (13-61) 12/17/18 08:00 Alkaline Phosphatase 53 U/L (45-117) 12/17/18 08:00 Total Protein 6.4 g/dl (6.4-8.2) 12/17/18 08:00 Albumin 3.7 g/dl (3.4-5.0) 12/17/18 08:00 Urine Color Yellow 12/18/18 08:55 Urine Appearance Clear 12/18/18 08:55 Urine pH 7.0 (5.0-8.0) 12/18/18 08:55 Ur Specific [place] 1.014 (1.010-1.035) 12/18/18 08:55 Urine Protein Negative (NEGATIVE) 12/18/18 08:55 Urine Glucose (UA) Negative (NEGATIVE) 12/18/18 08:55 Urine Ketones Negative (NEGATIVE) 12/18/18 08:55 Urine Blood Negative (NEGATIVE) 12/18/18 08:55 Urine Nitrite Negative (NEGATIVE) 12/18/18 08:55 Urine Bilirubin Negative (NEGATIVE) 12/18/18 08:55 Urine Urobilinogen 0.2 mg/dL (0.2-1.0) 12/18/18 08:55 Ur Leukocyte Esterase Negative (NEGATIVE) 12/18/18 08:55 RPR Titer Nonreactive (NONREACTIVE) 12/17/18 08:00 HIV 1&2 Antibody Screen Negative 12/17/18 08:00 HIV P24 Antigen Negative 12/17/18 08:00 lab noted encourage the patient bringing in lab report to methadone program for follow up - Treatment Hospital Course: Detox Protocol Followed, Detoxed Safely, Responded well, Discharged Condition Good, Rehab Referral Accepted Patient has Accepted a Rehab Referral to: [facility] program / [facility] - Medication Discharge Medications: Ambulatory Orders NK [No Known Home Medication] 02/21/18 - Diagnosis (1) Sedative, hypnotic or anxiolytic dependence with withdrawal, uncomplicated Current Visit: Yes Status: Acute (2) Asthma Current Visit: Yes Status: Chronic Qualifiers: Asthma severity: mild Asthma persistence: intermittent Asthma complication type: with status asthmaticus Qualified Code(s): J45.22 - Mild intermittent asthma with status asthmaticus (3) Nicotine dependence Current Visit: Yes Status: Acute Qualifiers: Nicotine product type: cigarettes Substance use status: in withdrawal Qualified Code(s): F17.213 - Nicotine dependence, cigarettes, with withdrawal (4) Substance induced mood disorder Current Visit: Yes Status: Suspected (5) Methadone maintenance therapy patient Current Visit: Yes Status: Chronic - AMA Did Patient Leave Against Medical Advice: No CIWA Score - CIWA Score Nausea/Vomitin-No Nausea/No Vomiting Muscle Tremors: 2 Anxiety: 2 Agitation: 1-Slight > Activity Paroxysmal Sweats: No Perspiration Orientation: 0-Oriented Tacttile Disturbances: 0-None Auditory Disturbances: 0-None Visual Disturbances: 0-None Headache: 0-None Present CIWA-Ar Total Score: 5
== END 2018-12-19 11:15 | disposition home or self-care (01) | DRG 773 ==
LOC: YASAS 16:22 → Y3N 22:26
PROVIDERS: ADMIT Surgery; ATTEND Surgery
PROC: HZ2ZZZZ Detoxification Services for Substance Abuse Treatment (ICD-10-PCS; principal; 2018-12-16)
DX: F13.230 Sedative, hypnotic or anxiolytic dependence with withdrawal, uncomplicated (principal); F11.20 Opioid dependence, uncomplicated; F17.213 Nicotine dependence, cigarettes, with withdrawal; F19.24 Other psychoactive substance dependence with psychoactive substance-induced mood disorder; J45.22 Mild intermittent asthma with status asthmaticus; Z91.013 Allergy to seafood
CPT/HCPCS: 36415; 80053; 81003; 85027; 86593; 87389; 93005; 93010

== ENCOUNTER 2021-01-12 12:25 | Inpatient (IN) | payer OTHER ==
[2021-01-12 13:22] VITALS: BMI 20.6
[2021-01-12] MEDS ORDERED: IBUPROFEN 400 MG TABLET (FP) PO PRN (14:00)
[2021-01-12] MEDS ORDERED: ONDANSETRON *ODT* 4 MG TABLET SL PRN (14:00)
[2021-01-12] MEDS ORDERED: BISMUTH SUBSALICYLATE 262 MG/15 ML BTL PO PRN (14:00)
[2021-01-12] MEDS ORDERED: MAGNESIUM HYDROX 2400MG/30ML ORAL SUSPENSION 30 ML CUP PO PRN (14:00)
[2021-01-12] MEDS ORDERED: cloNIDine HCL 0.1 MG TABLET PO PRN (14:00)
[2021-01-12] MEDS ORDERED: NICOTINE 10 MG CARTRIDGE (INHALER) IH PRN (14:00)
[2021-01-12] MEDS ORDERED: NICOTINE 21 MG/24 HOURS TOPICAL PATCH TD PRN (14:00)
[2021-01-12] MEDS ORDERED: ACETAMINOPHEN 325 MG TABLET (FP) PO PRN (14:00)
[2021-01-12] MEDS ORDERED: NICOTINE POLACRILEX 2 MG GUM BUC PRN (14:00)
[2021-01-12] MEDS ORDERED: MAG HYDROX/AL HYDROX/SIMETH 30 ML UNIT-DOSE CUP PO PRN (14:00)
[2021-01-12] MEDS ORDERED: MAGNESIUM CITRATE 300 ML BOTTLE PO PRN (14:00)
[2021-01-12] MEDS ORDERED: MENTHOL/PHENOL 1 EACH UD MM PRN (14:00)
[2021-01-12] MEDS ORDERED: methaDONE HCL 10 MG TABLET (FOR DETOX USE ONLY) PO ONE ×2 (14:55→18:00)
[2021-01-12] MEDS: hydrOXYzine PAMOATE 25 MG CAPSULE (FP) PO SCH ×4 (17:22→22:31)
[2021-01-12] MEDS: PRENATAL VITAMINS W/ FOLIC ACID TABLET (FP) PO SCH (17:27)
[2021-01-12] MEDS: METHOCARBAMOL 500 MG TABLET PO PRN (17:46)
[2021-01-12 17:59] LABS: CALCIUM 8.4 mg/dL (8.5-10.1)
[2021-01-12 18:00] LABS: BLOOD UREA NITROGEN 14.7 mg/dL (7-18)
[2021-01-12 18:02] LABS: ALBUMIN 3.6 g/dl (3.4-5.0)
[2021-01-12 18:05] LABS: CREATININE 1.1 mg/dL (0.55-1.3)
[2021-01-12 18:06] LABS: BILIRUBIN,TOTAL 0.4 mg/dL (0.2-1); TOT PROT 6.7 g/dl (6.4-8.2)
[2021-01-12 18:15] LABS: HEMATOCRIT 35.1 % (35.4-49); HEMOGLOBIN 11.9 GM/dL (11.7-16.9); MCH 29.2 pg (25.7-33.7); MEAN PLT VOLUME 8.5 fl (7.5-11.1); PLATELET COUNT 193 10^3/uL (134-434); RBC 4.08 M/mm3 (4.00-5.60); RDW 14.1 % (11.9-15.9); WHITE BLOOD COUNT 7.1 K/mm3 (4.0-10.0)
[2021-01-12] MEDS ORDERED: MELATONIN 5 MG TABLETS PO SCH (22:00)
[2021-01-12] MEDS: THIAMINE HCL 100 MG TABLET (FP) PO SCH (22:31)
[2021-01-13] MEDS: hydrOXYzine PAMOATE 25 MG CAPSULE (FP) PO SCH (06:30)
[2021-01-13] MEDS ORDERED: methaDONE HCL 10 MG TABLET (FOR DETOX USE ONLY) ONE (09:20)
[2021-01-13] MEDS ORDERED: hydrOXYzine PAMOATE 25 MG CAPSULE (FP) PO PRN (09:24)
[2021-01-13] MEDS: PRENATAL VITAMINS W/ FOLIC ACID TABLET (FP) PO SCH (10:09)
[2021-01-13] MEDS ORDERED: TEMAZEPAM 15 MG CAPSULE PO PRN (10:19)
[2021-01-13] MEDS: METHOCARBAMOL 500 MG TABLET PO PRN ×2 (10:22→18:56)
[2021-01-13] MEDS ORDERED: DICYCLOMINE HCL 10 MG CAPSULE PO PRN (11:34)
[2021-01-13] MEDS ORDERED: FLU VACC QS2021-22(6MOS UP)/PF 60 MCG/0.5 ML SYRINGE IM ONE (12:00)
[2021-01-13] MEDS: diazePAM 5 MG TABLET PO PRN ×2 (12:11→18:56)
[2021-01-13 16:01] LABS: HIV INTERPRETATION NEGATIVE (NEGATIVE)
[2021-01-13] MEDS ORDERED: SUVOREXANT 10 MG TABLET PO PRN (22:00)
[2021-01-13] MEDS: THIAMINE HCL 100 MG TABLET (FP) PO SCH (22:08)
[2021-01-13] MEDS: ACETAMINOPHEN 325 MG TABLET (FP) PO PRN (22:09)
[2021-01-14] MEDS: diazePAM 5 MG TABLET PO PRN ×2 (05:46→10:18)
[2021-01-14] MEDS: METHOCARBAMOL 500 MG TABLET PO PRN (05:47)
[2021-01-14] MEDS ORDERED: methaDONE HCL 10 MG TABLET (FOR DETOX USE ONLY) PO ONE (10:00)
[2021-01-14] MEDS: PRENATAL VITAMINS W/ FOLIC ACID TABLET (FP) PO SCH (10:18)
[2021-01-14] MEDS: ACETAMINOPHEN 325 MG TABLET (FP) PO PRN (10:19)
[2021-01-14] MEDS ORDERED: METHOCARBAMOL 750 MG TAB PO PRN (10:57)
[2021-01-14 13:20] VITALS: BP 108/76; PULSE 77; TEMP 96.4
[2021-01-16] MEDS ORDERED: methaDONE HCL 10 MG TABLET (FOR DETOX USE ONLY) PO ONE (10:00)
== END 2021-01-14 15:05 | disposition left against medical advice (07) | DRG 770 ==
LOC: YASAS 12:25 → Y3N 14:57
PROVIDERS: ADMIT Allergy & Immunology; ATTEND Allergy & Immunology
PROC: HZ2ZZZZ Detoxification Services for Substance Abuse Treatment (ICD-10-PCS; principal; 2021-01-12)
DX: F11.23 Opioid dependence with withdrawal (principal); F13.20 Sedative, hypnotic or anxiolytic dependence, uncomplicated; F12.10 Cannabis abuse, uncomplicated; F17.210 Nicotine dependence, cigarettes, uncomplicated; F41.9 Anxiety disorder, unspecified; F32.9 Major depressive disorder, single episode, unspecified; F39 Unspecified mood [affective] disorder; F19.24 Other psychoactive substance dependence with psychoactive substance-induced mood disorder; R82.90 Unspecified abnormal findings in urine; J45.20 Mild intermittent asthma, uncomplicated; Z91.013 Allergy to seafood; Z56.0 Unemployment, unspecified
CPT/HCPCS: 36415; 80053; 85027; 86780; 87389; 90686; C9803; G0008; U0003; U0005

== ENCOUNTER 2021-02-09 14:29 | Inpatient (IN) | payer OTHER ==
[2021-02-09] MEDS ORDERED: MENTHOL/PHENOL 1 EACH UD MM PRN (16:03)
[2021-02-09] MEDS ORDERED: BISMUTH SUBSALICYLATE 524 MG/30 ML PO PRN (16:03)
[2021-02-09] MEDS ORDERED: ACETAMINOPHEN 325 MG TABLET (FP) PO PRN ×2 (16:03)
[2021-02-09] MEDS ORDERED: MAGNESIUM HYDROX 2400MG/30ML ORAL SUSPENSION 30 ML CUP PO PRN (16:03)
[2021-02-09] MEDS ORDERED: cloNIDine HCL 0.1 MG TABLET PO PRN (16:03)
[2021-02-09] MEDS ORDERED: MAGNESIUM CITRATE 300 ML BOTTLE PO PRN (16:03)
[2021-02-09] MEDS ORDERED: MAG HYDROX/AL HYDROX/SIMETH 30 ML UNIT-DOSE CUP PO PRN (16:03)
[2021-02-09] MEDS ORDERED: ONDANSETRON *ODT* 4 MG TABLET SL PRN (16:03)
[2021-02-09] MEDS ORDERED: methaDONE HCL 10 MG TABLET (FOR DETOX USE ONLY) PO ONE (16:03)
[2021-02-09] MEDS ORDERED: NICOTINE 10 MG CARTRIDGE (INHALER) IH PRN (16:03)
[2021-02-09 17:12] VITALS: BMI 21.4
[2021-02-09] MEDS: hydrOXYzine PAMOATE 25 MG CAPSULE (FP) PO SCH ×2 (18:29→22:46)
[2021-02-09] MEDS: diazePAM 5 MG TABLET PO PRN (18:29)
[2021-02-09] MEDS: MELATONIN 5 MG TABLETS PO SCH (22:46)
[2021-02-09] MEDS: THIAMINE HCL 100 MG TABLET (FP) PO SCH (22:46)
[2021-02-09] MEDS: IBUPROFEN 400 MG TABLET (FP) PO PRN (22:47)
[2021-02-10] MEDS: hydrOXYzine PAMOATE 25 MG CAPSULE (FP) PO SCH ×5 (06:53→22:08)
[2021-02-10] MEDS ORDERED: methaDONE HCL 10 MG TABLET (FOR DETOX USE ONLY) ONE (09:46)
[2021-02-10] MEDS: PRENATAL VITAMINS W/ FOLIC ACID TABLET (FP) PO SCH (10:14)
[2021-02-10] MEDS: METHOCARBAMOL 500 MG TABLET PO PRN ×2 (10:14→17:27)
[2021-02-10] MEDS: diazePAM 5 MG TABLET PO PRN ×3 (10:15→22:08)
[2021-02-10 10:16] LABS: HEMATOCRIT 36.5 % (35.4-49); HEMOGLOBIN 12.2 GM/dL (11.7-16.9); MCH 28.9 pg (25.7-33.7); MCHC 33.4 g/dl (32.0-35.9); MEAN CELL VOLUME 86.4 fl (80-96); PLATELET COUNT 201 10^3/uL (134-434); RBC 4.22 M/mm3 (4.00-5.60); RDW 13.9 % (11.9-15.9); WHITE BLOOD COUNT 4.9 K/mm3 (4.0-10.0)
[2021-02-10 10:26] LABS: BLOOD UREA NITROGEN 13.3 mg/dL (7-18)
[2021-02-10 10:27] LABS: BILIRUBIN,TOTAL 0.3 mg/dL (0.2-1); CALCIUM 8.3 mg/dL (8.5-10.1); TOT PROT 5.5 g/dl (6.4-8.2)
[2021-02-10 10:29] LABS: CREATININE 0.8 mg/dL (0.55-1.3)
[2021-02-10 13:28] LABS: HIV INTERPRETATION NEGATIVE (NEGATIVE)
[2021-02-10] MEDS: IBUPROFEN 400 MG TABLET (FP) PO PRN (13:58)
[2021-02-10] MEDS: MELATONIN 5 MG TABLETS PO SCH (22:08)
[2021-02-10] MEDS: THIAMINE HCL 100 MG TABLET (FP) PO SCH (22:08)
[2021-02-11] MEDS: hydrOXYzine PAMOATE 25 MG CAPSULE (FP) PO SCH ×5 (06:03→22:14)
[2021-02-11] MEDS: diazePAM 5 MG TABLET PO PRN ×3 (08:32→17:33)
[2021-02-11] MEDS: METHOCARBAMOL 500 MG TABLET PO PRN ×2 (08:33→22:15)
[2021-02-11] MEDS ORDERED: methaDONE HCL 10 MG TABLET (FOR DETOX USE ONLY) PO ONE (10:00)
[2021-02-11] MEDS: PRENATAL VITAMINS W/ FOLIC ACID TABLET (FP) PO SCH (10:08)
[2021-02-11] MEDS: BACITRACIN 0.9 GM PACKET TP SCH (15:33)
[2021-02-11] MEDS: MELATONIN 5 MG TABLETS PO SCH (22:14)
[2021-02-11] MEDS: THIAMINE HCL 100 MG TABLET (FP) PO SCH (22:14)
[2021-02-12] MEDS: METHOCARBAMOL 500 MG TABLET PO PRN (05:42)
[2021-02-12] MEDS: IBUPROFEN 400 MG TABLET (FP) PO PRN (05:42)
[2021-02-12] MEDS: hydrOXYzine PAMOATE 25 MG CAPSULE (FP) PO SCH ×2 (05:43→10:17)
[2021-02-12] MEDS: diazePAM 5 MG TABLET PO PRN (06:12)
[2021-02-12 09:25] VITALS: BP 112/67; PULSE 66; TEMP 98.4
[2021-02-12] MEDS ORDERED: methaDONE HCL 10 MG TABLET (FOR DETOX USE ONLY) ONE (09:29)
[2021-02-12] MEDS: PRENATAL VITAMINS W/ FOLIC ACID TABLET (FP) PO SCH (10:17)
[2021-02-12] MEDS: BACITRACIN 0.9 GM PACKET TP SCH (10:21)
[2021-02-12 12:36] LABS: CALCIUM 8.9 mg/dL (8.5-10.1)
[2021-02-12 12:37] LABS: BLOOD UREA NITROGEN 11.2 mg/dL (7-18)
[2021-02-12 12:41] LABS: BILIRUBIN,TOTAL 0.4 mg/dL (0.2-1); CREATININE 0.9 mg/dL (0.55-1.3)
[2021-02-12 12:42] LABS: TOT PROT 6.8 g/dl (6.4-8.2)
[2021-02-12 12:50] LABS: ALBUMIN 3.8 g/dl (3.4-5.0)
[2021-02-12] MEDS ORDERED: IBUPROFEN 600 MG TABLET (FP) PO PRN (14:00)
[2021-02-13] MEDS ORDERED: methaDONE HCL 10 MG TABLET (FOR DETOX USE ONLY) PO ONE (10:00)
== END 2021-02-12 11:52 | disposition left against medical advice (07) | DRG 770 ==
LOC: YASAS 14:29 → Y6N 16:47
PROVIDERS: ADMIT Allergy & Immunology; ATTEND Allergy & Immunology
PROC: HZ2ZZZZ Detoxification Services for Substance Abuse Treatment (ICD-10-PCS; principal; 2021-02-09)
DX: F11.23 Opioid dependence with withdrawal (principal); F12.20 Cannabis dependence, uncomplicated; F17.210 Nicotine dependence, cigarettes, uncomplicated; J45.909 Unspecified asthma, uncomplicated; R94.5 Abnormal results of liver function studies; S60.221A Contusion of right hand, initial encounter; W22.09XA Striking against other stationary object, initial encounter; Y92.238 Other place in hospital as the place of occurrence of the external cause
CPT/HCPCS: 36415; 73110-TC-RT-FY; 73130-TC-RT-FY; 80053; 82140; 85027; 86780; 87389; C9803; U0003; U0005

== ENCOUNTER 2021-02-11 14:12 | Emergency (ER) | payer OTHER ==
[2021-02-11 14:22] VITALS: BP 97/57; PULSE 78; TEMP 98; BMI 20.9
== END 2021-02-11 16:39 | disposition home or self-care (01) ==
LOC: JERFT 14:12
DX: S60.221A Contusion of right hand, initial encounter (principal); W22.8XXA Striking against or struck by other objects, initial encounter
CPT/HCPCS: 73110-TC-RT-FY; 73130-TC-RT-FY; 99283-25

== ENCOUNTER 2021-03-06 12:10 | Inpatient (IN) | payer OTHER ==
[2021-03-06 12:49] VITALS: BMI 20.9
[2021-03-06] MEDS ORDERED: MAG HYDROX/AL HYDROX/SIMETH 30 ML UNIT-DOSE CUP PO PRN (14:42)
[2021-03-06] MEDS ORDERED: NICOTINE 10 MG CARTRIDGE (INHALER) IH PRN (14:42)
[2021-03-06] MEDS ORDERED: ACETAMINOPHEN 325 MG TABLET (FP) PO PRN ×2 (14:42)
[2021-03-06] MEDS ORDERED: methaDONE HCL 10 MG TABLET (FOR DETOX USE ONLY) PO ONE (14:42)
[2021-03-06] MEDS ORDERED: cloNIDine HCL 0.1 MG TABLET PO PRN (14:42)
[2021-03-06] MEDS ORDERED: diazePAM 5 MG TABLET PO PRN (14:42)
[2021-03-06] MEDS ORDERED: MENTHOL/PHENOL 1 EACH UD MM PRN (14:42)
[2021-03-06] MEDS ORDERED: IBUPROFEN 400 MG TABLET (FP) PO PRN (14:42)
[2021-03-06] MEDS ORDERED: MAGNESIUM CITRATE 300 ML BOTTLE PO PRN (14:42)
[2021-03-06] MEDS ORDERED: ONDANSETRON *ODT* 4 MG TABLET SL PRN (14:42)
[2021-03-06] MEDS ORDERED: MAGNESIUM HYDROX 2400MG/30ML ORAL SUSPENSION 30 ML CUP PO PRN (14:42)
[2021-03-06] MEDS ORDERED: BISMUTH SUBSALICYLATE 524 MG/30 ML PO PRN (14:42)
[2021-03-06] MEDS: METHOCARBAMOL 500 MG TABLET PO PRN (15:48)
[2021-03-06] MEDS: diazePAM 5 MG TABLET PO SCH ×2 (17:56→22:15)
[2021-03-06] MEDS: hydrOXYzine PAMOATE 25 MG CAPSULE (FP) PO SCH ×2 (17:56→22:15)
[2021-03-06] MEDS ORDERED: MELATONIN 5 MG TABLETS PO SCH (22:00)
[2021-03-06] MEDS: THIAMINE HCL 100 MG TABLET (FP) PO SCH (22:15)
[2021-03-06] MEDS: GABAPENTIN 300 MG CAPSULE PO SCH (22:15)
[2021-03-07] MEDS: GABAPENTIN 300 MG CAPSULE PO SCH ×3 (06:12→22:38)
[2021-03-07] MEDS: diazePAM 5 MG TABLET PO SCH ×4 (06:12→22:37)
[2021-03-07] MEDS: hydrOXYzine PAMOATE 25 MG CAPSULE (FP) PO SCH ×5 (06:12→22:38)
[2021-03-07] MEDS ORDERED: methaDONE HCL 10 MG TABLET (FOR DETOX USE ONLY) ONE (09:22)
[2021-03-07] MEDS: VENLAFAXINE HCL 75 MG E.R. CAPSULES PO SCH (10:11)
[2021-03-07] MEDS: PRENATAL VITAMINS W/ FOLIC ACID TABLET (FP) PO SCH (10:15)
[2021-03-07 12:58] LABS: HEMATOCRIT 40.7 % (35.4-49); HEMOGLOBIN 13.7 GM/dL (11.7-16.9); MCH 28.8 pg (25.7-33.7); MCHC 33.6 g/dl (32.0-35.9); MEAN CELL VOLUME 85.8 fl (80-96); PLATELET COUNT 217 10^3/uL (134-434); RBC 4.74 M/mm3 (4.00-5.60); RDW 14.2 % (11.9-15.9); WHITE BLOOD COUNT 4.5 K/mm3 (4.0-10.0)
[2021-03-07 13:13] LABS: BLOOD UREA NITROGEN 15.5 mg/dL (7-18); CALCIUM 8.7 mg/dL (8.5-10.1)
[2021-03-07 13:14] LABS: ALBUMIN 3.6 g/dl (3.4-5.0)
[2021-03-07 13:16] LABS: CREATININE 0.9 mg/dL (0.55-1.3)
[2021-03-07 13:18] LABS: BILIRUBIN,TOTAL 0.8 mg/dL (0.2-1); TOT PROT 6.5 g/dl (6.4-8.2)
[2021-03-07] MEDS: METHOCARBAMOL 500 MG TABLET PO PRN (17:56)
[2021-03-07] MEDS ORDERED: SUVOREXANT 10 MG TABLET PO PRN (22:00)
[2021-03-07] MEDS: THIAMINE HCL 100 MG TABLET (FP) PO SCH (22:38)
[2021-03-08] MEDS: hydrOXYzine PAMOATE 25 MG CAPSULE (FP) PO SCH ×3 (06:35→13:46)
[2021-03-08] MEDS: diazePAM 5 MG TABLET PO SCH ×2 (06:35→13:45)
[2021-03-08] MEDS: GABAPENTIN 300 MG CAPSULE PO SCH ×2 (06:35→13:45)
[2021-03-08 07:09] VITALS: PULSE 69
[2021-03-08] MEDS: METHOCARBAMOL 500 MG TABLET PO PRN (07:45)
[2021-03-08] MEDS ORDERED: methaDONE HCL 10 MG TABLET (FOR DETOX USE ONLY) PO ONE (10:00)
[2021-03-08] MEDS: PRENATAL VITAMINS W/ FOLIC ACID TABLET (FP) PO SCH (10:35)
[2021-03-08] MEDS: VENLAFAXINE HCL 75 MG E.R. CAPSULES PO SCH (10:35)
[2021-03-08 15:02] VITALS: BP 131/74; TEMP 97.8
[2021-03-09] MEDS ORDERED: diazePAM 5 MG TABLET PO SCH (06:00)
[2021-03-10] MEDS ORDERED: diazePAM 5 MG TABLET PO ONE (06:00)
[2021-03-10] MEDS ORDERED: methaDONE HCL 10 MG TABLET (FOR DETOX USE ONLY) PO ONE (10:00)
== END 2021-03-08 16:14 | disposition left against medical advice (07) | DRG 770 ==
LOC: YASAS 12:10 → Y6N 14:57
PROVIDERS: ADMIT Allergy & Immunology; ATTEND Allergy & Immunology
PROC: HZ2ZZZZ Detoxification Services for Substance Abuse Treatment (ICD-10-PCS; principal; 2021-03-06)
DX: F11.23 Opioid dependence with withdrawal (principal); F13.230 Sedative, hypnotic or anxiolytic dependence with withdrawal, uncomplicated; F12.20 Cannabis dependence, uncomplicated; F17.213 Nicotine dependence, cigarettes, with withdrawal; F41.9 Anxiety disorder, unspecified; F31.9 Bipolar disorder, unspecified; F90.9 Attention-deficit hyperactivity disorder, unspecified type; F19.24 Other psychoactive substance dependence with psychoactive substance-induced mood disorder; F19.282 Other psychoactive substance dependence with psychoactive substance-induced sleep disorder; J45.20 Mild intermittent asthma, uncomplicated; R63.4 Abnormal weight loss; M54.59 Other low back pain; G89.29 Other chronic pain; M51.26 Other intervertebral disc displacement, lumbar region; Z91.013 Allergy to seafood; Z62.810 Personal history of physical and sexual abuse in childhood; Z56.0 Unemployment, unspecified
CPT/HCPCS: 36415; 80053; 85027; 86780; C9803; U0003; U0005

== ENCOUNTER 2021-09-03 12:33 | Inpatient (IN) | payer OTHER ==
[2021-09-03 14:28] VITALS: BMI 21.2
[2021-09-03] MEDS ORDERED: diazePAM 5 MG TABLET PO PRN (15:51)
[2021-09-03] MEDS ORDERED: ONDANSETRON *ODT* 4 MG TABLET SL PRN (15:51)
[2021-09-03] MEDS ORDERED: MAGNESIUM CITRATE 300 ML BOTTLE PO PRN (15:51)
[2021-09-03] MEDS ORDERED: MAGNESIUM HYDROX 2400MG/30ML ORAL SUSPENSION 30 ML CUP PO PRN (15:51)
[2021-09-03] MEDS ORDERED: NICOTINE 10 MG CARTRIDGE (INHALER) IH PRN (15:51)
[2021-09-03] MEDS ORDERED: MAG HYDROX/AL HYDROX/SIMETH 30 ML UNIT-DOSE CUP PO PRN (15:51)
[2021-09-03] MEDS ORDERED: IBUPROFEN 600 MG TABLET (FP) PO PRN (15:51)
[2021-09-03] MEDS ORDERED: DICYCLOMINE HCL 10 MG CAPSULE PO PRN (15:51)
[2021-09-03] MEDS ORDERED: cloNIDine HCL 0.1 MG TABLET PO PRN (15:51)
[2021-09-03] MEDS ORDERED: IBUPROFEN 400 MG TABLET (FP) PO PRN (15:51)
[2021-09-03] MEDS ORDERED: ACETAMINOPHEN 325 MG TABLET (FP) PO PRN ×2 (15:51)
[2021-09-03] MEDS ORDERED: BENZOCAINE/MENTHOL (CHLORASEPTIC ) LOZENGE MM PRN (15:51)
[2021-09-03] MEDS ORDERED: BISMUTH SUBSALICYLATE 524 MG/30 ML PO PRN (15:51)
[2021-09-03] MEDS ORDERED: LOPERAMIDE HCL 2 MG CAPSULE PO PRN (15:51)
[2021-09-03] MEDS ORDERED: methaDONE HCL 10 MG TABLET (FOR DETOX USE ONLY) PO ONE (17:00)
[2021-09-03] MEDS: diazePAM 5 MG TABLET PO SCH (18:24)
[2021-09-03] MEDS: hydrOXYzine PAMOATE 25 MG CAPSULE (FP) PO SCH ×2 (18:25→23:26)
[2021-09-03] MEDS: METHOCARBAMOL 500 MG TABLET PO PRN (18:51)
[2021-09-03] MEDS: BACITRACIN 0.9 GM PACKET TP SCH (23:25)
[2021-09-03] MEDS: MELATONIN 5 MG TABLETS PO SCH (23:25)
[2021-09-03] MEDS: THIAMINE HCL 100 MG TABLET (FP) PO SCH (23:26)
[2021-09-04] MEDS: diazePAM 5 MG TABLET PO SCH ×5 (00:35→22:50)
[2021-09-04] MEDS: hydrOXYzine PAMOATE 25 MG CAPSULE (FP) PO SCH ×5 (06:08→22:51)
[2021-09-04] MEDS ORDERED: methaDONE HCL 10 MG TABLET (FOR DETOX USE ONLY) ONE (09:03)
[2021-09-04] MEDS: METHOCARBAMOL 500 MG TABLET PO PRN ×2 (09:05→14:27)
[2021-09-04] MEDS: BACITRACIN 0.9 GM PACKET TP SCH ×2 (09:10→22:51)
[2021-09-04] MEDS: PRENATAL VITAMINS W/ FOLIC ACID TABLET (FP) PO SCH (10:15)
[2021-09-04 10:47] LABS: HEMATOCRIT 40.8 % (35.4-49); HEMOGLOBIN 13.4 GM/dL (11.7-16.9); MCH 27.9 pg (25.7-33.7); MCHC 32.9 g/dl (32.0-35.9); MEAN PLT VOLUME 8.5 fl (7.5-11.1); PLATELET COUNT 230 10^3/uL (134-434); WHITE BLOOD COUNT 5.4 K/mm3 (4.0-10.0)
[2021-09-04 10:59] LABS: ALBUMIN 3.8 g/dl (3.4-5.0); BLOOD UREA NITROGEN 18.5 mg/dL (7-18); CALCIUM 8.7 mg/dL (8.5-10.1)
[2021-09-04 11:02] LABS: CREATININE 0.8 mg/dL (0.55-1.3)
[2021-09-04 11:03] LABS: BILIRUBIN,TOTAL 0.6 mg/dL (0.2-1); TOT PROT 6.8 g/dl (6.4-8.2)
[2021-09-04] MEDS ORDERED: VENLAFAXINE HCL 75 MG E.R. CAPSULES PO ONE (12:35)
[2021-09-04] MEDS ORDERED: DOXEPIN HCL 10 MG CAPSULE PO SCH (22:00)
[2021-09-04] MEDS: GABAPENTIN 400 MG CAPSULE PO SCH (22:50)
[2021-09-04] MEDS: THIAMINE HCL 100 MG TABLET (FP) PO SCH (22:50)
[2021-09-04] MEDS: MELATONIN 5 MG TABLETS PO SCH (22:51)
[2021-09-05] MEDS ORDERED: diazePAM 5 MG TABLET PO SCH (06:00)
[2021-09-05] MEDS: GABAPENTIN 400 MG CAPSULE PO SCH (06:27)
[2021-09-05] MEDS: hydrOXYzine PAMOATE 25 MG CAPSULE (FP) PO SCH ×2 (06:27→11:51)
[2021-09-05 09:37] VITALS: BP 126/76; PULSE 83; TEMP 98.1
[2021-09-05] MEDS ORDERED: methaDONE HCL 10 MG TABLET (FOR DETOX USE ONLY) PO ONE (10:00)
[2021-09-05] MEDS ORDERED: VENLAFAXINE HCL 75 MG E.R. CAPSULES PO SCH (10:00)
[2021-09-05] MEDS: PRENATAL VITAMINS W/ FOLIC ACID TABLET (FP) PO SCH (11:51)
[2021-09-05] MEDS: BACITRACIN 0.9 GM PACKET TP SCH (11:51)
[2021-09-06] MEDS ORDERED: diazePAM 5 MG TABLET PO SCH (06:00)
[2021-09-07] MEDS ORDERED: diazePAM 5 MG TABLET PO ONE (06:00)
[2021-09-07] MEDS ORDERED: methaDONE HCL 10 MG TABLET (FOR DETOX USE ONLY) PO ONE (10:00)
== END 2021-09-05 12:05 | disposition home or self-care (01) | DRG 773 ==
LOC: YASAS 12:33 → Y3N 16:55 → Y6N 17:19
PROVIDERS: ADMIT Allergy & Immunology; ATTEND Surgery
PROC: HZ2ZZZZ Detoxification Services for Substance Abuse Treatment (ICD-10-PCS; principal; 2021-09-03)
DX: F11.23 Opioid dependence with withdrawal (principal); F13.230 Sedative, hypnotic or anxiolytic dependence with withdrawal, uncomplicated; F14.20 Cocaine dependence, uncomplicated; F12.20 Cannabis dependence, uncomplicated; F17.210 Nicotine dependence, cigarettes, uncomplicated; F19.24 Other psychoactive substance dependence with psychoactive substance-induced mood disorder; F31.9 Bipolar disorder, unspecified; F41.9 Anxiety disorder, unspecified; M51.26 Other intervertebral disc displacement, lumbar region; G89.29 Other chronic pain; Z20.822 Contact with and (suspected) exposure to COVID-19; R63.4 Abnormal weight loss; Z68.21 Body mass index [BMI] 21.0-21.9, adult; Z28.310 Unvaccinated for COVID-19
CPT/HCPCS: 36415; 80053; 85027; 86780; C9803-CS; J0735; U0003; U0005